=== PATIENT | male | born 1980 | race African-American/Black ===

== ENCOUNTER 2020-07-01 12:34 | Emergency (ER) | payer MEDICAID ==
[~2020-07-01] VITALS: Ht 175.3 cm; Wt 91.0 kg
[2020-07-01] MEDS ORDERED: IBUPROFEN 600MG TABLET PO ONE (14:00)
[2020-07-01 16:15] VITALS: BP 160/89
== END 2020-07-01 16:24 | disposition home or self-care (01) ==
LOC: ER 12:34
DX: S93.402A Sprain of unspecified ligament of left ankle, initial encounter (principal); S56.311A Strain of extensor or abductor muscles, fascia and tendons of right thumb at forearm level, initial encounter; I10 Essential (primary) hypertension; F17.200 Nicotine dependence, unspecified, uncomplicated; W52.XXXA Crushed, pushed or stepped on by crowd or human stampede, initial encounter; Y93.89 Activity, other specified; Y92.89 Other specified places as the place of occurrence of the external cause; Y99.8 Other external cause status
CPT/HCPCS: 29515; 73130; 73610; 73630; 99284

== ENCOUNTER 2025-03-01 08:10 | Emergency (ER) | payer OTHER, MEDICAID ==
[~2025-03-01] VITALS: Ht 172.7 cm; Wt 81.6 kg
[2025-03-01 08:21] VITALS: O2SAT 100
[2025-03-01 10:02] VITALS: BP 131/79; PULSE 82; RESP 16; TEMP 36.7; O2SAT 100
== END 2025-03-01 10:03 | disposition home or self-care (01) ==
LOC: ER 08:10
DX: S86.112A Strain of other muscle(s) and tendon(s) of posterior muscle group at lower leg level, left leg, initial encounter (principal); X58.XXXA Exposure to other specified factors, initial encounter; Y93.89 Activity, other specified; Y92.89 Other specified places as the place of occurrence of the external cause; Y99.8 Other external cause status
CPT/HCPCS: 93971; 99284